=== PATIENT | female | born 1930 | race Caucasian/White ===

== ENCOUNTER 2017-09-27 07:15 | Day surgery (SDC) | payer MEDICARE, OTHER ==
[~2017-09-27 07:15] MED LIST: BUPIVACAINE HCL 0.75% INJ/PF (7.5 MG/1 ML) 10 ML SDV OD PRN; CHONDR SU A NA/HYALUR INTRAOC KIT (SURGICARE) ONE; EPINEPHRINE INJ/PF 1 MG/1 ML AMPULE ONE; KETOROLAC TROMETHAMINE 0.45% 4 DROP/0.4 ML DROPERETTE OD PRN; LIDOCAINE 4% INJ/PF (40 MG/ML) 5 ML AMPUL OD PRN
[2017-09-27] MEDS: CYCLOPENTOLATE 0.2%/PHENYLEPHRINE 1% OPH SOLN 2 ML OD PRN ×3 (07:57→08:17)
[2017-09-27] MEDS: BESIFLOXACIN HCL 0.6% OPH SUSP 5 ML BOTTLE OD PRN ×4 (07:57→08:54)
[2017-09-27] MEDS: TROPICAMIDE 1% OPH SOLN 3 ML OD PRN ×3 (07:57→08:17)
[2017-09-27] MEDS: TETRACAINE HCL 0.5% OPH SOLN 0.6 ML DROPERETTE OD PRN ×2 (07:58→08:17)
[2017-09-27] MEDS ORDERED: FENTANYL CITRATE INJ/PF 100 MCG/2 ML AMPUL ONE (08:09)
[2017-09-27] MEDS ORDERED: MIDAZOLAM 2 MG/2 ML INJ ONE (08:09)
[2017-09-27] MEDS ORDERED: ONDANSETRON HCL INJ/PF 4 MG/2 ML SDV ONE (08:09)
[2017-09-27] MEDS ORDERED: LIDOCAINE 2% INJ-PF (100 MG/5 ML) SYRINGE ONE (08:17)
[2017-09-27] MEDS ORDERED: LIDOCAINE 1% INJ-PF (10 MG/ML) 30 ML SDV ONE (08:42)
--- NOTE | 2017-09-27 09:05 | [facility] DISCHARGE SUMMARY E ---
[facility] Discharge Summary NAME: NAVID TSAI AGE: 87Y ADMITTED: 09/27/2017 DISCHARGED: 09/27/2017 PREOPERATIVE DIAGNOSIS: CATARACT, RIGHT EYE. POSTOPERATIVE DIAGNOSIS: CATARACT, RIGHT EYE. HOSPITAL COURSE: Patient is an 87-year-old lady who underwent uneventful cataract extraction with intraocular lens implant, right eye, on 09/27/2017. DISPOSITION: She will be discharged to home. She was instructed to resume preoperative medications; take Tylenol as needed for discomfort; to keep her eye shielded; to use Besivance, Durezol, and Ilevro at 3:00 p.m. and 8:00 p.m.; and to follow up in my office in 1 day. DICTATING PHYSICIAN: BERENICE OLIVARES M.D. [id number] PHY#: [id number] ID: [id number] JOB#: [id number] ACCT: [id number] cc:BERENICE OLIVARES M.D. >
--- NOTE | 2017-09-27 09:05 | [facility] OPERATIVE REPORT E ---
[facility] Operative Report NAME: NAVID TSAI AGE: 87Y DATE OF SURGERY: 09/27/2017 ROOM: PREOPERATIVE DIAGNOSIS: CATARACT, RIGHT EYE. POSTOPERATIVE DIAGNOSIS: CATARACT, RIGHT EYE. OPERATION: Phacoemulsification with posterior chamber intraocular lens, right eye. SURGEON: BERENICE OLIVARES M.D. ANESTHESIA: Topical with MAC. INDICATIONS FOR SURGERY: Difficulty reading small print. Best corrected visual acuity 20/60. DESCRIPTION OF PROCEDURE: The patient was brought to the operating room and placed on the operative table. Following tetracaine drops, topical anesthesia was administered. This consisted of instrument wipe pledgets soaked in a solution of 4% Xylocaine mixed with 0.75% Marcaine in a 1:2 ratio. A 2 x 1 cm pledget was placed in the superior fornix. A 1 x 1 cm pledget was placed in the inferior fornix. The eye was patched shut for 5 minutes. The patch was removed. The eye was sterilely prepped and draped in the usual manner. Lid speculum was placed in the eye. The pledgets were removed, 4-0 black silk sutures were placed around the superior and the inferior rectus muscles to be used as traction. A conjunctival peritomy was made at the 10 o'clock position. Hemostasis was obtained with bipolar cautery. A posterior limbal groove was created using a crescent knife and dissected anteriorly towards the cornea. A sharp point blade was used to create a paracentesis site at the 2 o'clock position. A 2.4 mm keratome was used to enter the anterior chamber through the groove. Viscoelastic was injected into the anterior chamber. An anterior capsulotomy was performed using Utrata forceps in a capsulorrhexis fashion. Hydrodissection and hydrodelineation were performed. Phacoemulsification was performed in [id number]-[id number] technique. A total of 23.44 CDE phaco time was used. Following this, the I/A unit was used to remove residual cortex. Viscoelastic was injected into the capsular bag. Intraocular lens Model SN60WF, 19.5 diopter, serial number [id number] was placed in the capsular bag. The I/A unit was used to removed residual viscoelastic. The wound was seen to be watertight under high and low pressure, and no sutures were placed. The intraocular lens was well centered. The pressure was adjusted in the eye to normal pressure. The 4-0 black silk sutures and lid speculum were removed. The eye was shielded after Besivance drops were placed. The patient tolerated the procedure well and was sent to the recovery room in good condition. DICTATING PHYSICIAN: BERENICE OLIVARES M.D. [id number] PHY#: [id number] ID: [id number] JOB#: [id number] ACCT: [id number] cc:BERENICE OLIVARES M.D. >
== END 2017-09-27 09:35 | disposition home or self-care (01) ==
LOC: SC 07:15
PROVIDERS: ATTEND Ophthalmology
PROC: 08RJ3JZ Replacement of Right Lens with Synthetic Substitute, Percutaneous Approach (ICD-10-PCS; principal; 2017-09-27 08:30)
DX: H25.813 Combined forms of age-related cataract, bilateral (principal); H35.89 Other specified retinal disorders; H11.002 Unspecified pterygium of left eye; J44.9 Chronic obstructive pulmonary disease, unspecified; Z87.891 Personal history of nicotine dependence; Z85.828 Personal history of other malignant neoplasm of skin
CPT/HCPCS: 66984; V2632; J2250; J3490 ×4; A9270; J0171; J3010; J2001; J2405; 142

== ENCOUNTER 2017-10-18 08:55 | Day surgery (SDC) | payer MEDICARE, OTHER ==
[~2017-10-18 08:55] MED LIST changes: -BUPIVACAINE HCL 0.75% INJ/PF (7.5 MG/1 ML) 10 ML SDV OD PRN; +BUPIVACAINE HCL 0.75% INJ/PF (7.5 MG/1 ML) 10 ML SDV OS PRN; -KETOROLAC TROMETHAMINE 0.45% 4 DROP/0.4 ML DROPERETTE OD PRN; +KETOROLAC TROMETHAMINE 0.45% 4 DROP/0.4 ML DROPERETTE OS PRN; +LIDOCAINE 1% INJ-PF (10 MG/ML) 30 ML SDV ONE; -LIDOCAINE 4% INJ/PF (40 MG/ML) 5 ML AMPUL OD PRN; +LIDOCAINE 4% INJ/PF (40 MG/ML) 5 ML AMPUL OS PRN
[2017-10-18] MEDS: TROPICAMIDE 1% OPH SOLN 3 ML OS PRN ×3 (09:17→09:35)
[2017-10-18] MEDS: BESIFLOXACIN HCL 0.6% OPH SUSP 5 ML BOTTLE OS PRN ×3 (09:17→10:22)
[2017-10-18] MEDS: TETRACAINE HCL 0.5% OPH SOLN 0.6 ML DROPERETTE OS PRN ×2 (09:17→09:41)
[2017-10-18] MEDS: CYCLOPENTOLATE 0.2%/PHENYLEPHRINE 1% OPH SOLN 2 ML OS PRN ×3 (09:17→09:35)
[2017-10-18] MEDS ORDERED: ONDANSETRON HCL INJ/PF 4 MG/2 ML SDV ONE (09:27)
[2017-10-18] MEDS ORDERED: FENTANYL CITRATE INJ/PF 100 MCG/2 ML AMPUL ONE (09:27)
[2017-10-18] MEDS ORDERED: MIDAZOLAM 2 MG/2 ML INJ ONE (09:27)
--- NOTE | 2017-10-18 10:34 | [facility] OPERATIVE REPORT E ---
[facility] Operative Report NAME: NAVID TSAI AGE: 87Y DATE OF SURGERY: 10/18/2017 ROOM: PREOPERATIVE DIAGNOSIS: Cataract, left eye. POSTOPERATIVE DIAGNOSIS: Cataract, left eye. OPERATION: Phacoemulsification with posterior chamber intraocular lens, left eye. SURGEON: BERENICE OLIVARES M.D. ANESTHESIA: Topical with MAC. INDICATIONS FOR SURGERY: Difficulty watching TV. Best corrected visual acuity 20/50. PROCEDURE: The patient was brought to the Operating Room and placed on the operative table. Following tetracaine drops, topical anesthesia was administered. This consisted of instrument wipe pledgets soaked in a solution of 4% Xylocaine mixed with 0.75% Marcaine in a 1:2 ratio. A 2 x 1 cm pledget was placed in the superior fornix. A 1 x 1 cm pledget was placed in the inferior fornix. The eye was patched shut for 5 minutes. The patch was removed. The eye was sterilely prepped and draped in the usual manner. Lid speculum was placed in the eye. The pledgets were removed. 4-0 black silk sutures were placed around the superior and the inferior rectus muscles to be used as traction. A conjunctival peritomy was made at the 10 o'clock position. Hemostasis was obtained with bipolar cautery. A posterior limbal groove was created using a crescent knife and dissected anteriorly towards the cornea. A sharp point blade was used to create a paracentesis site at the 2 o'clock position. A 2.4 mm keratome was used to enter the anterior chamber through the groove. Viscoelastic was injected into the anterior chamber. An anterior capsulotomy was performed using Utrata forceps in a capsulorrhexis fashion. Hydrodissection and hydrodelineation were performed. Phacoemulsification was performed in [id number] technique. A total of 2 minutes phaco time was used. Following this, the I/A unit was used to remove residual cortex. Viscoelastic was injected into the capsular bag. Intraocular lens model SN60WF, 19.5 diopters, serial number [id number] was placed in the capsular bag. The I/A unit was used to remove residual viscoelastic. The wound was seen to be watertight under high and low pressure, and no sutures were placed. The intraocular lens was well centered. The pressure was adjusted in the eye to normal pressure. The 4-0 black silk sutures and lid speculum were removed. The eye was shielded after Besivance drops were placed. The patient tolerated the procedure well and was sent to the Recovery Room in good condition. DICTATING PHYSICIAN: BERENICE OLIVARES M.D. [id number] PHY#: [id number] ID: [id number] JOB#: [id number] ACCT: [id number] cc:BERENICE OLIVARES M.D. >
--- NOTE | 2017-10-18 10:39 | [facility] DISCHARGE SUMMARY E ---
[facility] Discharge Summary NAME: NAVID TSAI AGE: 87Y ADMITTED: 10/18/2017 DISCHARGED: 10/18/2017 HOSPITAL COURSE: The patient is an 87-year-old lady who underwent uneventful cataract extraction with intraocular lens implant left eye on 10/18/2017. She will be discharged to home. She is instructed to resume preoperative medications, take Tylenol as needed for discomfort, to keep her eye shielded, to use Besivance, Durezol and Ilevro at 3:00 p.m. and 8:00 p.m., and to follow up in my office in 1 day. FINAL DIAGNOSIS: Cataract, left eye. DICTATING PHYSICIAN: BERENICE OLIVARES M.D. [id number] PHY#: [id number] ID: [id number] JOB#: [id number] ACCT: [id number] cc:BERENICE OLIVARES M.D. >
== END 2017-10-18 11:13 | disposition home or self-care (01) ==
LOC: SC 08:55
PROVIDERS: ATTEND Ophthalmology
DX: H25.812 Combined forms of age-related cataract, left eye (principal); Z96.1 Presence of intraocular lens; H04.123 Dry eye syndrome of bilateral lacrimal glands; J44.9 Chronic obstructive pulmonary disease, unspecified
CPT/HCPCS: 66984; V2632; J2250; J3490 ×4; A9270; J0171; J3010; J2405; 142